=== PATIENT | female | born 1975 ===

== ENCOUNTER 2017-05-13 08:02 | Outpatient (CLI) | payer BC ==
--- NOTE | 2017-05-13 09:15 | Mammography Report ---
Bilateral mammogram: No previous studies available. CAD study utilized. Findings: Scattered glandular parenchyma bilaterally. No microcalcification. A focal circumscribed 4 mm asymmetry outer right breast. Focal ill-defined asymmetry posterior mid right breast. Circumscribed asymmetry posterior upper right breast. Impression: Focal asymmetry is right breast. Spot magnification and if necessary sonographic examination enlarged. BI-RADS CATEGORY: 0 = Needs additional imaging evaluation ACR BI-RADS MAMMOGRAPHIC CODES: 0 = Needs additional imaging evaluation; 1 = Negative; 2 = Benign; 3 = Probably benign; 4 = Suspicious; 5 = Malignant; 6 = Known biopsy-proven malignancy COMMENT: 1. Dense breast tissue, i.e., adenosis, fibrocystic changes, etc., may obscure an underlying neoplasm. 2. Approximately 10% of cancers are not detected with mammography. 3. A negative mammography report should not delay biopsy if a clinically suspicious mass is present. COMMENT: Patient follow-up letters are generated in [employer].
== END 2017-05-13 08:03 | disposition home or self-care (01) ==
LOC: SPVWC 08:02
PROVIDERS: ATTEND Family Medicine
DX: Z12.31 Encounter for screening mammogram for malignant neoplasm of breast (principal)
CPT/HCPCS: 77067; G0202